=== PATIENT | female | born 1995 | race Caucasian/White ===

== ENCOUNTER 2017-11-30 16:07 | Emergency (ER) | payer MEDICAID, OTHER ==
[2017-11-30 19:15] LABS: URINE PH (Dip) POC 6.5 (5.0-8.5)
[2017-11-30 19:15] LABS: URINE BLOOD (Dip) POC Negative (NEGATIVE); URINE GLUCOSE (Dip) POC Negative (NEGATIVE); URINE KETONES (Dip) POC 1+ (NEGATIVE); URINE LEUKOCYTE EST (Dip) POC Negative (NEGATIVE); URINE NITRITE (Dip) POC Negative (NEGATIVE); URINE TOTAL PROTEIN POC Negative (NEGATIVE)
== END 2017-11-30 21:24 | disposition home or self-care (01) ==
LOC: FTE 16:07
DX: O20.9 Hemorrhage in early pregnancy, unspecified (principal); R10.2 Pelvic and perineal pain; Z3A.01 Less than 8 weeks gestation of pregnancy
CPT/HCPCS: 76801; 76817; 81003; 81025; 84702; 99284-25

== ENCOUNTER 2017-12-06 10:31 | Emergency (ER) | payer MEDICAID ==
[2017-12-06 11:19] LABS: ADD MAN DIFF? NO
[2017-12-06 11:21] LABS: WHITE BLOOD COUNT 7.7 10^3/ul (4.8-10.8)
[2017-12-06 11:21] LABS: BASOPHILS % 0.3 % (0.0-2.0); EOSINOPHILS # 0.1 10^3/ul (0.0-0.5); EOSINOPHILS % 0.8 % (0.0-7.0); HEMATOCRIT 39.5 % (37.0-47.0); HEMOGLOBIN 13.6 g/dl (12.0-16.0); LYMPHOCYTES # 1.4 10^3/ul (0.8-2.9); LYMPHOCYTES % 18.5 % (15.0-51.0); MEAN CORPUSCULAR HEMOGLOBIN 30.2 pg (29.0-33.0); MEAN CORPUSCULAR HGB CONC 34.4 g/dl (32.0-37.0); MEAN CORPUSCULAR VOLUME 87.6 fl (82.0-101.0); MEAN PLATELET VOLUME 11.1 fl (7.4-10.4); MONOCYTE # 0.6 10^3/ul (0.3-0.9); MONOCYTES % 7.8 % (0.0-11.0); NEUTROPHIL # 5.6 10^3/ul (1.6-7.5); NEUTROPHILS % 72.3 % (39.0-77.0); PLATELET COUNT 197 10^3/UL (140-415); RED BLOOD COUNT 4.51 10^6/ul (4.20-5.40); RED CELL DISTRIBUTION WIDTH 11.9 % (11.5-14.5)
[2017-12-06 11:32] LABS: ADD UMIC YES; UR ASCORBIC ACID NEGATIVE (NEGATIVE); UR BILIRUBIN (Dip) NEGATIVE (NEGATIVE); UR BLOOD (Dip) 1+ mg/dL (NEGATIVE); UR CLARITY SLIGHTLY CLOUDY (CLEAR); UR COLOR YELLOW (YELLOW); UR GLUCOSE (Dip) NEGATIVE (NEGATIVE); UR KETONES (Dip) NEGATIVE (NEGATIVE); UR LEUKOCYTE ESTERASE (Dip) NEGATIVE Leu/ul (NEGATIVE); UR NITRITE (Dip) NEGATIVE (NEGATIVE); UR RBC 4 /HPF (0-5); UR SPECIFIC GRAVITY (Dip) 1.012 (1.003-1.030); UR SQUAMOUS EPITHELIAL CELL FEW /HPF (FEW); UR TOTAL PROTEIN (Dip) NEGATIVE (NEGATIVE); UR UROBILINOGEN (Dip) NEGATIVE (NEGATIVE); UR WBC 3 /HPF (0-5)
== END 2017-12-06 12:15 | disposition home or self-care (01) ==
LOC: FTE 10:31
DX: O20.9 Hemorrhage in early pregnancy, unspecified (principal); Z3A.01 Less than 8 weeks gestation of pregnancy
CPT/HCPCS: 36415; 76801; 81001; 84702; 85025; 86900; 86901; 99284-25

== ENCOUNTER 2018-04-13 15:35 | Inpatient (IN) | payer MEDICAID ==
[2018-04-13] MEDS ORDERED: ACETAMINOPHEN 650 MG SUPP PR (16:00)
[2018-04-13] MEDS: LACTATED RINGER'S 1,000 ML IV (16:25)
[2018-04-13] MEDS: MAGNESIUM SULFATE 4 GM/100 ML 100 ML IV (16:32)
[2018-04-13 16:34] LABS: ADD MAN DIFF? NO
[2018-04-13 16:39] LABS: BASOPHILS % 0.2 % (0.0-2.0); EOSINOPHILS # 0.1 10^3/ul (0.0-0.5); EOSINOPHILS % 0.9 % (0.0-7.0); HEMATOCRIT 31.4 % (37.0-47.0); HEMOGLOBIN 10.7 g/dl (12.0-16.0); LYMPHOCYTES # 1.6 10^3/ul (0.8-2.9); LYMPHOCYTES % 15.1 % (15.0-51.0); MEAN CORPUSCULAR HEMOGLOBIN 31.4 pg (29.0-33.0); MEAN CORPUSCULAR HGB CONC 34.1 g/dl (32.0-37.0); MEAN CORPUSCULAR VOLUME 92.1 fl (82.0-101.0); MEAN PLATELET VOLUME 10.8 fl (7.4-10.4); MONOCYTE # 0.7 10^3/ul (0.3-0.9); MONOCYTES % 6.9 % (0.0-11.0); NEUTROPHIL # 7.9 10^3/ul (1.6-7.5); NEUTROPHILS % 75.9 % (39.0-77.0); PLATELET COUNT 204 10^3/UL (140-415); RED BLOOD COUNT 3.41 10^6/ul (4.20-5.40); RED CELL DISTRIBUTION WIDTH 12.8 % (11.5-14.5)
[2018-04-13 16:39] LABS: WHITE BLOOD COUNT 10.4 10^3/ul (4.8-10.8)
[2018-04-13] MEDS: BETAMET NA PHOS/AC(6 MG/ML) 2 ML INJ SYG IM (16:56)
[2018-04-13] MEDS ORDERED: PRENATAL VITAMIN PO (17:00)
[2018-04-13] MEDS: MAGNESIUM SULFATE 20 GM/500 ML 500 ML IV (17:04)
[2018-04-13 17:07] LABS: ALANINE AMINOTRANSFERASE 15 IU/L (13-69); ALBUMIN 4.1 g/dl (3.3-4.9); ALBUMIN/GLOBULIN RATIO 1.24; ALKALINE PHOSPHATASE 78 IU/L (42-121); ANION GAP 13 (5-13); ASPARTATE AMINO TRANSFERASE 21 IU/L (15-46); BILIRUBIN,INDIRECT 0.1 mg/dl (0-1.1); BILIRUBIN,TOTAL 0.1 mg/dl (0.2-1.3); BLOOD UREA NITROGEN 6 mg/dl (7-20); CALCIUM 9.6 mg/dl (8.4-10.2); CARBON DIOXIDE 24 mmol/L (21-31); CHLORIDE 102 mmol/L (97-110); CREATININE 0.41 mg/dl (0.44-1.00); Estimated GFR > 60 mL/min (>60); GLUCOSE 77 mg/dl (70-220); POTASSIUM 3.4 mmol/L (3.5-5.1); SODIUM 139 mmol/L (135-144); TOTAL PROTEIN 7.4 g/dl (6.1-8.1)
[2018-04-13 17:35] LABS: HEPATITIS B SURFACE ANTIGEN NEGATIVE (NEGATIVE)
[2018-04-13 18:51] LABS: ADD UMIC YES; UR ASCORBIC ACID NEGATIVE (NEGATIVE); UR BACTERIA FEW /HPF (NONE SEEN); UR BILIRUBIN (Dip) NEGATIVE (NEGATIVE); UR BLOOD (Dip) NEGATIVE (NEGATIVE); UR CLARITY CLEAR (CLEAR); UR COLOR YELLOW (YELLOW); UR GLUCOSE (Dip) NEGATIVE (NEGATIVE); UR KETONES (Dip) NEGATIVE (NEGATIVE); UR LEUKOCYTE ESTERASE (Dip) 2+ Leu/ul (NEGATIVE); UR NITRITE (Dip) NEGATIVE (NEGATIVE); UR RBC 0 /HPF (0-5); UR SPECIFIC GRAVITY (Dip) 1.008 (1.003-1.030); UR TOTAL PROTEIN (Dip) NEGATIVE (NEGATIVE); UR UROBILINOGEN (Dip) NEGATIVE (NEGATIVE); UR WBC 1 /HPF (0-5)
[2018-04-14 00:49] LABS: MAGNESIUM 5.4 mg/dl (1.7-2.5)
[2018-04-14] MEDS: MAGNESIUM SULFATE 20 GM/500 ML 500 ML IV ×3 (03:22→22:30)
[2018-04-14] MEDS: LACTATED RINGER'S 1,000 ML IV ×2 (04:06→17:01)
[2018-04-14 07:11] LABS: MAGNESIUM 5.7 mg/dl (1.7-2.5)
[2018-04-14] MEDS ORDERED: ACETAMINOPHEN 325 MG TAB PO (07:30)
[2018-04-14] MEDS ORDERED: ONDANSETRON 4 MG INJ IV (07:30)
[2018-04-14] MEDS: DOCUSATE SODIUM 100 MG CAP PO ×3 (09:15→21:09)
[2018-04-14] MEDS: PRENATAL VITAMIN PO (09:15)
[2018-04-14 12:32] LABS: MAGNESIUM 5.8 mg/dl (1.7-2.5)
[2018-04-14] MEDS: BETAMET NA PHOS/AC(6 MG/ML) 2 ML INJ SYG IM (16:52)
[2018-04-14 19:04] LABS: MAGNESIUM 5.4 mg/dl (1.7-2.5)
[2018-04-14] MEDS: MAGNESIUM HYDROXIDE 30ML CUP PO (21:09)
[2018-04-15] MEDS: LACTATED RINGER'S 1,000 ML IV (05:19)
[2018-04-15] MEDS: MAGNESIUM SULFATE 20 GM/500 ML 500 ML IV (05:21)
[2018-04-15 08:19] LABS: MAGNESIUM 4.1 mg/dl (1.7-2.5)
[2018-04-15] MEDS: DOCUSATE SODIUM 100 MG CAP PO ×2 (08:54→21:02)
[2018-04-15] MEDS: PRENATAL VITAMIN PO (08:54)
[2018-04-16] MEDS: PRENATAL VITAMIN PO (08:54)
[2018-04-16] MEDS: DOCUSATE SODIUM 100 MG CAP PO ×2 (08:54→21:00)
[2018-04-17] MEDS: DOCUSATE SODIUM 100 MG CAP PO ×2 (10:23→21:19)
[2018-04-17] MEDS: PRENATAL VITAMIN PO (10:23)
[2018-04-17] MEDS: INDOMETHACIN 50 MG PO (10:56)
[2018-04-17] MEDS ORDERED: INDOMETHACIN 25 MG (16:59)
[2018-04-17] MEDS: INDOMETHACIN 25 MG PO (17:06)
[2018-04-17] MEDS: LACTATED RINGER'S 1,000 ML IV (18:05)
[2018-04-17] MEDS: MAGNESIUM SULFATE 20 GM/500 ML 500 ML IV (18:08)
[2018-04-17] MEDS ORDERED: PATIENT'S OWN MEDICATION VAG (21:00)
[2018-04-17] MEDS: CEFAZOLIN 1 GM/50 ML (PMX) 50 ML IVPB (22:38)
[2018-04-17] MEDS: PROGESTERONE 200 MG VAG (22:38)
[2018-04-18] MEDS: INDOMETHACIN 25 MG PO ×5 (00:58→23:58)
[2018-04-18 01:02] LABS: MAGNESIUM 5.7 mg/dl (1.7-2.5)
[2018-04-18] MEDS: MAGNESIUM SULFATE 20 GM/500 ML 500 ML IV (04:41)
[2018-04-18] MEDS: CEFAZOLIN 1 GM/50 ML (PMX) 50 ML IVPB ×3 (05:57→21:12)
[2018-04-18] MEDS: LACTATED RINGER'S 1,000 ML IV ×2 (05:57→21:08)
[2018-04-18 07:02] LABS: GTT FASTING GLUCOSE 84 mg/dl (70-110)
[2018-04-18 07:20] LABS: GTT FASTING URINE NEGATIVE (NEGATIVE)
[2018-04-18 07:58] LABS: GLUCOSE 1 HOUR 147 mg/dl
[2018-04-18] MEDS: DOCUSATE SODIUM 100 MG CAP PO ×2 (09:12→21:09)
[2018-04-18] MEDS: PRENATAL VITAMIN PO (09:12)
[2018-04-18] MEDS: CALCIUM/VITAMIN D (500/200) TAB PO (11:48)
[2018-04-18 12:43] LABS: MAGNESIUM 6.1 mg/dl (1.7-2.5)
[2018-04-18] MEDS: NIFEdipine 10 MG CAP PO ×2 (16:16→21:11)
[2018-04-18 17:44] LABS: ADD UMIC YES; UR ASCORBIC ACID NEGATIVE (NEGATIVE); UR BILIRUBIN (Dip) NEGATIVE (NEGATIVE); UR BLOOD (Dip) NEGATIVE (NEGATIVE); UR CLARITY CLEAR (CLEAR); UR COLOR STRAW (YELLOW); UR GLUCOSE (Dip) NEGATIVE (NEGATIVE); UR KETONES (Dip) NEGATIVE (NEGATIVE); UR LEUKOCYTE ESTERASE (Dip) TRACE Leu/ul (NEGATIVE); UR MUCUS FEW /HPF (NONE SEEN); UR NITRITE (Dip) NEGATIVE (NEGATIVE); UR RBC 0 /HPF (0-5); UR SPECIFIC GRAVITY (Dip) 1.004 (1.003-1.030); UR TOTAL PROTEIN (Dip) NEGATIVE (NEGATIVE); UR UROBILINOGEN (Dip) NEGATIVE (NEGATIVE); UR WBC 1 /HPF (0-5)
[2018-04-18] MEDS: PROGESTERONE 200 MG VAG (21:10)
[2018-04-19] MEDS: NIFEdipine 10 MG CAP PO ×3 (05:49→22:02)
[2018-04-19] MEDS: CEFAZOLIN 1 GM/50 ML (PMX) 50 ML IVPB ×3 (05:49→22:01)
[2018-04-19] MEDS: INDOMETHACIN 25 MG PO (05:49)
[2018-04-19] MEDS: DOCUSATE SODIUM 100 MG CAP PO ×2 (08:46→21:08)
[2018-04-19] MEDS: PRENATAL VITAMIN PO (08:46)
[2018-04-19] MEDS: LACTATED RINGER'S 1,000 ML IV ×2 (12:43→23:20)
[2018-04-19] MEDS: CALCIUM/VITAMIN D (500/200) TAB PO (17:12)
[2018-04-19] MEDS: metroNIDAZOLE 500 MG TAB PO ×2 (17:12→21:08)
[2018-04-19] MEDS: PROGESTERONE 200 MG VAG (21:08)
[2018-04-20] MEDS: LACTATED RINGER'S 1,000 ML IV (04:20)
[2018-04-20] MEDS: CEFAZOLIN 1 GM/50 ML (PMX) 50 ML IVPB (05:55)
[2018-04-20] MEDS: NIFEdipine 10 MG CAP PO ×3 (05:56→21:46)
[2018-04-20] MEDS: metroNIDAZOLE 500 MG TAB PO ×2 (08:29→20:53)
[2018-04-20] MEDS: DOCUSATE SODIUM 100 MG CAP PO ×2 (08:29→20:53)
[2018-04-20] MEDS: CALCIUM/VITAMIN D (500/200) TAB PO (08:29)
[2018-04-20] MEDS: PRENATAL VITAMIN PO (08:29)
[2018-04-20] MEDS: PROGESTERONE 200 MG VAG (20:54)
[2018-04-21] MEDS: NIFEdipine 10 MG CAP PO ×3 (05:59→21:40)
[2018-04-21] MEDS: DOCUSATE SODIUM 100 MG CAP PO ×2 (09:00→20:34)
[2018-04-21] MEDS: metroNIDAZOLE 500 MG TAB PO ×2 (09:00→20:35)
[2018-04-21] MEDS: CALCIUM/VITAMIN D (500/200) TAB PO (09:00)
[2018-04-21] MEDS: PRENATAL VITAMIN PO (09:01)
[2018-04-21] MEDS: PROGESTERONE 200 MG VAG ×2 (20:35→21:00)
[2018-04-22] MEDS: NIFEdipine 10 MG CAP PO ×3 (05:27→22:01)
[2018-04-22] MEDS: PRENATAL VITAMIN PO (09:13)
[2018-04-22] MEDS: DOCUSATE SODIUM 100 MG CAP PO ×2 (09:13→20:36)
[2018-04-22] MEDS: CALCIUM/VITAMIN D (500/200) TAB PO (09:13)
[2018-04-22] MEDS: metroNIDAZOLE 500 MG TAB PO ×2 (09:13→20:36)
[2018-04-22] MEDS: FERROUS SULFATE (EC) 325 MG TAB PO (16:02)
[2018-04-22] MEDS: PROGESTERONE 200 MG VAG (20:36)
[2018-04-23] MEDS: NIFEdipine 10 MG CAP PO ×3 (05:58→21:35)
[2018-04-23 08:31] LABS: GLUCOSE, FASTING 73 mg/dl (70-110)
[2018-04-23 08:33] LABS: GLUCOSE,URINE RANDOM < 20 mg/dl (0-29)
[2018-04-23] MEDS: metroNIDAZOLE 500 MG TAB PO ×2 (08:59→21:35)
[2018-04-23] MEDS: PRENATAL VITAMIN PO (08:59)
[2018-04-23] MEDS: FERROUS SULFATE (EC) 325 MG TAB PO (08:59)
[2018-04-23] MEDS: DOCUSATE SODIUM 100 MG CAP PO ×2 (08:59→21:35)
[2018-04-23] MEDS: CALCIUM/VITAMIN D (500/200) TAB PO (08:59)
[2018-04-23] MEDS: PROGESTERONE 200 MG VAG (21:34)
[2018-04-24 06:05] LABS: GTT FASTING URINE NEGATIVE (NEGATIVE)
[2018-04-24] MEDS: NIFEdipine 10 MG CAP PO ×3 (06:12→21:40)
[2018-04-24 06:25] LABS: GTT FASTING GLUCOSE 74 mg/dl (70-110)
[2018-04-24 06:53] LABS: GLUCOSE 1 HOUR 132 mg/dl
[2018-04-24] MEDS: DOCUSATE SODIUM 100 MG CAP PO ×2 (08:55→21:40)
[2018-04-24] MEDS: PRENATAL VITAMIN PO (08:56)
[2018-04-24] MEDS: CALCIUM/VITAMIN D (500/200) TAB PO (08:56)
[2018-04-24] MEDS: metroNIDAZOLE 500 MG TAB PO ×2 (08:56→21:40)
[2018-04-24] MEDS: FERROUS SULFATE (EC) 325 MG TAB PO (08:56)
[2018-04-24 14:13] LABS: RUPTURE FETAL MEMBRANES NEGATIVE (NEGATIVE)
[2018-04-24] MEDS: PROGESTERONE 200 MG VAG (21:40)
[2018-04-25] MEDS: NIFEdipine 10 MG CAP PO ×3 (05:50→22:05)
[2018-04-25] MEDS: metroNIDAZOLE 500 MG TAB PO (08:06)
[2018-04-25] MEDS: FERROUS SULFATE (EC) 325 MG TAB PO (08:06)
[2018-04-25] MEDS: DOCUSATE SODIUM 100 MG CAP PO ×2 (08:06→21:10)
[2018-04-25] MEDS: CALCIUM/VITAMIN D (500/200) TAB PO (08:06)
[2018-04-25] MEDS: PRENATAL VITAMIN PO (08:06)
[2018-04-25] MEDS: AL HYDROX/MG HYDROX/SIMETH 30 ML CUP PO (10:24)
[2018-04-25] MEDS ORDERED: MAGNESIUM HYDROXIDE 30ML CUP PO (10:30)
[2018-04-25] MEDS: POLYETHYLENE GLYCOL 17 GM PACKET PO (13:49)
[2018-04-25] MEDS: PROGESTERONE 200 MG VAG (21:10)
[2018-04-26] MEDS: NIFEdipine 10 MG CAP PO ×3 (05:48→21:48)
[2018-04-26] MEDS: CALCIUM/VITAMIN D (500/200) TAB PO (09:45)
[2018-04-26] MEDS: DOCUSATE SODIUM 100 MG CAP PO ×2 (09:45→21:45)
[2018-04-26] MEDS: FERROUS SULFATE (EC) 325 MG TAB PO (09:45)
[2018-04-26] MEDS: PRENATAL VITAMIN PO (09:45)
[2018-04-26] MEDS: PROGESTERONE 200 MG VAG (21:45)
[2018-04-27] MEDS: NIFEdipine 10 MG CAP PO ×3 (05:52→21:49)
[2018-04-27] MEDS: CALCIUM/VITAMIN D (500/200) TAB PO (08:31)
[2018-04-27] MEDS: PRENATAL VITAMIN PO (08:31)
[2018-04-27] MEDS: DOCUSATE SODIUM 100 MG CAP PO ×2 (08:31→20:51)
[2018-04-27] MEDS: FERROUS SULFATE (EC) 325 MG TAB PO (08:31)
[2018-04-27] MEDS: PROGESTERONE 200 MG VAG (20:51)
[2018-04-28] MEDS: NIFEdipine 10 MG CAP PO ×3 (05:44→21:02)
[2018-04-28] MEDS: DOCUSATE SODIUM 100 MG CAP PO ×2 (09:21→21:01)
[2018-04-28] MEDS: PRENATAL VITAMIN PO (09:21)
[2018-04-28] MEDS: FERROUS SULFATE (EC) 325 MG TAB PO (09:21)
[2018-04-28] MEDS: CALCIUM/VITAMIN D (500/200) TAB PO (09:22)
[2018-04-28] MEDS: PROGESTERONE 200 MG VAG (21:01)
[2018-04-29] MEDS: NIFEdipine 10 MG CAP PO ×3 (06:03→22:08)
[2018-04-29] MEDS: CALCIUM/VITAMIN D (500/200) TAB PO (08:43)
[2018-04-29] MEDS: DOCUSATE SODIUM 100 MG CAP PO ×2 (08:43→21:05)
[2018-04-29] MEDS: FERROUS SULFATE (EC) 325 MG TAB PO (08:43)
[2018-04-29] MEDS: PRENATAL VITAMIN PO (08:43)
[2018-04-29] MEDS: PROGESTERONE 200 MG VAG (21:05)
[2018-04-30] MEDS: NIFEdipine 10 MG CAP PO ×3 (06:01→21:57)
[2018-04-30] MEDS: FERROUS SULFATE (EC) 325 MG TAB PO (08:58)
[2018-04-30] MEDS: PRENATAL VITAMIN PO (08:58)
[2018-04-30] MEDS: CALCIUM/VITAMIN D (500/200) TAB PO (08:58)
[2018-04-30] MEDS: DOCUSATE SODIUM 100 MG CAP PO ×2 (08:59→21:57)
[2018-04-30] MEDS: PROGESTERONE 200 MG VAG (21:00)
[2018-05-01] MEDS: NIFEdipine 10 MG CAP PO ×3 (05:34→22:06)
[2018-05-01] MEDS: FERROUS SULFATE (EC) 325 MG TAB PO (10:32)
[2018-05-01] MEDS: DOCUSATE SODIUM 100 MG CAP PO ×2 (10:32→21:08)
[2018-05-01] MEDS: CALCIUM/VITAMIN D (500/200) TAB PO (10:33)
[2018-05-01] MEDS: PRENATAL VITAMIN PO (10:33)
[2018-05-01] MEDS: PROGESTERONE 100 MG CAP VAG (21:08)
[2018-05-02] MEDS: NIFEdipine 10 MG CAP PO ×3 (05:35→21:31)
[2018-05-02] MEDS: FERROUS SULFATE (EC) 325 MG TAB PO (08:42)
[2018-05-02] MEDS: PRENATAL VITAMIN PO (08:42)
[2018-05-02] MEDS: CALCIUM/VITAMIN D (500/200) TAB PO (08:42)
[2018-05-02] MEDS: DOCUSATE SODIUM 100 MG CAP PO ×2 (08:42→21:30)
[2018-05-02] MEDS: PROGESTERONE 100 MG CAP VAG (21:31)
[2018-05-03] MEDS: NIFEdipine 10 MG CAP PO ×3 (05:33→22:32)
[2018-05-03] MEDS: DOCUSATE SODIUM 100 MG CAP PO ×2 (09:56→20:59)
[2018-05-03] MEDS: PRENATAL VITAMIN PO (09:56)
[2018-05-03] MEDS: FERROUS SULFATE (EC) 325 MG TAB PO (09:57)
[2018-05-03] MEDS: CALCIUM/VITAMIN D (500/200) TAB PO (09:57)
[2018-05-03] MEDS: PROGESTERONE 100 MG CAP VAG (21:01)
[2018-05-04] MEDS: NIFEdipine 10 MG CAP PO ×3 (05:55→22:54)
[2018-05-04] MEDS: FERROUS SULFATE (EC) 325 MG TAB PO (14:07)
[2018-05-04] MEDS: PRENATAL VITAMIN PO (14:07)
[2018-05-04] MEDS: DOCUSATE SODIUM 100 MG CAP PO ×2 (14:07→21:00)
[2018-05-04] MEDS: CALCIUM/VITAMIN D (500/200) TAB PO (14:11)
[2018-05-04] MEDS: PROGESTERONE 100 MG CAP VAG (21:01)
[2018-05-05] MEDS: NIFEdipine 10 MG CAP PO ×2 (05:50→13:29)
[2018-05-05] MEDS: FERROUS SULFATE (EC) 325 MG TAB PO (08:55)
[2018-05-05] MEDS: CALCIUM/VITAMIN D (500/200) TAB PO (08:55)
[2018-05-05] MEDS: DOCUSATE SODIUM 100 MG CAP PO (08:55)
[2018-05-05] MEDS: PRENATAL VITAMIN PO (08:55)
[2018-05-05] MEDS: DIPHTH/TET/ACEL PERTUSS (ADULT) 0.5 ML VIAL IM* (11:35)
== END 2018-05-05 14:40 | disposition home or self-care (01) | DRG 832 ==
LOC: L-D 15:35 → PP1 04-14 20:34 → L-D 15:42
DX: O26.873 Cervical shortening, third trimester (principal); O23.42 Unspecified infection of urinary tract in pregnancy, second trimester; Z3A.28 28 weeks gestation of pregnancy
CPT/HCPCS: 76815; 76817; 80053; 81001; 82945; 82947; 82950; 82951; 83735; 84112; 85025; 87086; 87340; 90715

== ENCOUNTER 2018-06-27 20:38 | Inpatient (IN) | payer MEDICAID ==
[2018-06-27] MEDS: LACTATED RINGER'S 1,000 ML IV (21:52)
[2018-06-27] MEDS ORDERED: ACETAMINOPHEN 325 MG TAB PO (22:00)
[2018-06-27 22:22] LABS: ADD UMIC YES; UR ASCORBIC ACID NEGATIVE (NEGATIVE); UR BACTERIA FEW /HPF (NONE SEEN); UR BILIRUBIN (Dip) NEGATIVE (NEGATIVE); UR BLOOD (Dip) 1+ mg/dL (NEGATIVE); UR CLARITY CLOUDY (CLEAR); UR COLOR YELLOW (YELLOW); UR GLUCOSE (Dip) NEGATIVE (NEGATIVE); UR KETONES (Dip) NEGATIVE (NEGATIVE); UR LEUKOCYTE ESTERASE (Dip) 3+ Leu/ul (NEGATIVE); UR NITRITE (Dip) NEGATIVE (NEGATIVE); UR RBC > 182 /HPF (0-5); UR SPECIFIC GRAVITY (Dip) 1.003 (1.003-1.030); UR SQUAMOUS EPITHELIAL CELL MODERATE /HPF (FEW); UR TOTAL PROTEIN (Dip) NEGATIVE (NEGATIVE); UR UROBILINOGEN (Dip) NEGATIVE (NEGATIVE); UR WBC > 182 /HPF (0-5)
[2018-06-27 22:27] LABS: RUPTURE FETAL MEMBRANES NEGATIVE (NEGATIVE)
[2018-06-27 22:37] LABS: ADD MAN DIFF? NO
[2018-06-27 22:40] LABS: BASOPHILS % 0.3 % (0.0-2.0); EOSINOPHILS # 0.2 10^3/ul (0.0-0.5); EOSINOPHILS % 1.5 % (0.0-7.0); HEMATOCRIT 31.2 % (37.0-47.0); HEMOGLOBIN 10.5 g/dl (12.0-16.0); LYMPHOCYTES % 20.6 % (15.0-51.0); MEAN CORPUSCULAR HEMOGLOBIN 30.7 pg (29.0-33.0); MEAN CORPUSCULAR HGB CONC 33.7 g/dl (32.0-37.0); MEAN CORPUSCULAR VOLUME 91.2 fl (82.0-101.0); MEAN PLATELET VOLUME 10.8 fl (7.4-10.4); MONOCYTE # 0.9 10^3/ul (0.3-0.9); MONOCYTES % 9.1 % (0.0-11.0); NEUTROPHIL # 6.5 10^3/ul (1.6-7.5); NEUTROPHILS % 67.2 % (39.0-77.0); PLATELET COUNT 255 10^3/UL (140-415); RED BLOOD COUNT 3.42 10^6/ul (4.20-5.40); RED CELL DISTRIBUTION WIDTH 12.6 % (11.5-14.5)
[2018-06-27 22:40] LABS: WHITE BLOOD COUNT 9.7 10^3/ul (4.8-10.8)
[2018-06-27 22:57] LABS: ALANINE AMINOTRANSFERASE 9 IU/L (13-69); ALBUMIN 3.8 g/dl (3.3-4.9); ALBUMIN/GLOBULIN RATIO 1.11; ALKALINE PHOSPHATASE 182 IU/L (42-121); ANION GAP 8 (5-13); ASPARTATE AMINO TRANSFERASE 17 IU/L (15-46); BILIRUBIN,INDIRECT 0.4 mg/dl (0-1.1); BILIRUBIN,TOTAL 0.4 mg/dl (0.2-1.3); BLOOD UREA NITROGEN 5 mg/dl (7-20); CALCIUM 9.3 mg/dl (8.4-10.2); CARBON DIOXIDE 23 mmol/L (21-31); CHLORIDE 105 mmol/L (97-110); CREATININE 0.44 mg/dl (0.44-1.00); Estimated GFR > 60 mL/min (>60); GLUCOSE 94 mg/dl (70-220); POTASSIUM 3.6 mmol/L (3.5-5.1); SODIUM 136 mmol/L (135-144); TOTAL PROTEIN 7.2 g/dl (6.1-8.1)
[2018-06-27] MEDS: MAGNESIUM SULFATE 4 GM/100 ML 100 ML IV (23:07)
[2018-06-27] MEDS: BETAMET NA PHOS/AC(6 MG/ML) 2 ML INJ SYG IM (23:15)
[2018-06-27] MEDS: TERBUTALINE 1 MG/ML INJ SC (23:19)
[2018-06-27] MEDS: MAGNESIUM SULFATE 20 GM/500 ML 500 ML IV (23:42)
[2018-06-27] MEDS: CEFAZOLIN 2 GM/50 ML (PMX) 50 ML IVPB (23:50)
[2018-06-28] MEDS: LACTATED RINGER'S 1,000 ML IV ×3 (04:36→22:11)
[2018-06-28] MEDS: CEFAZOLIN 2 GM/50 ML (PMX) 50 ML IVPB ×3 (07:53→23:08)
[2018-06-28] MEDS: FERROUS SULFATE (EC) 325 MG TAB PO (08:43)
[2018-06-28] MEDS: PRENATAL VITAMIN PO (08:43)
[2018-06-28] MEDS: MAGNESIUM SULFATE 20 GM/500 ML 500 ML IV ×2 (08:48→18:42)
[2018-06-28 12:27] LABS: MAGNESIUM 5.4 mg/dl (1.7-2.5)
[2018-06-28 19:11] LABS: MAGNESIUM 5.6 mg/dl (1.7-2.5)
[2018-06-28] MEDS ORDERED: NITROFURANTOIN (SR) 100 MG CAP PO (21:00)
[2018-06-28] MEDS: BETAMET NA PHOS/AC(6 MG/ML) 2 ML INJ SYG IM (23:04)
[2018-06-29 00:02] LABS: INR 0.97
[2018-06-29 00:03] LABS: PARTIAL THROMBOPLASTIN TIME 24.1 Sec (23.0-35.0)
[2018-06-29 00:29] LABS: HEPATITIS B SURFACE ANTIGEN NEGATIVE (NEGATIVE)
[2018-06-29] MEDS: CEFAZOLIN 2 GM/50 ML (PMX) 50 ML IVPB ×3 (06:30→23:26)
[2018-06-29] MEDS: LACTATED RINGER'S 1,000 ML IV ×2 (06:59→16:21)
[2018-06-29] MEDS: FERROUS SULFATE (EC) 325 MG TAB PO (09:25)
[2018-06-29] MEDS: PRENATAL VITAMIN PO (09:25)
[2018-06-29 15:04] LABS: RAPID PLASMA REAGIN NONREACTIVE (NR)
[2018-06-30] MEDS: LACTATED RINGER'S 1,000 ML IV ×4 (01:19→18:59)
[2018-06-30] MEDS: CEFAZOLIN 2 GM/50 ML (PMX) 50 ML IVPB ×3 (05:47→22:06)
[2018-06-30] MEDS: PRENATAL VITAMIN PO (08:58)
[2018-06-30] MEDS: FERROUS SULFATE (EC) 325 MG TAB PO (08:58)
[2018-07-01] MEDS: LACTATED RINGER'S 1,000 ML IV ×2 (03:11→12:25)
[2018-07-01] MEDS: CEFAZOLIN 2 GM/50 ML (PMX) 50 ML IVPB (06:11)
[2018-07-01] MEDS: FERROUS SULFATE (EC) 325 MG TAB PO (08:07)
[2018-07-01] MEDS: PRENATAL VITAMIN PO (08:07)
[2018-07-01 15:32] LABS: ADD UMIC NO; UR ASCORBIC ACID NEGATIVE (NEGATIVE); UR BILIRUBIN (Dip) NEGATIVE (NEGATIVE); UR BLOOD (Dip) NEGATIVE (NEGATIVE); UR CLARITY CLEAR (CLEAR); UR COLOR STRAW (YELLOW); UR GLUCOSE (Dip) NEGATIVE (NEGATIVE); UR KETONES (Dip) NEGATIVE (NEGATIVE); UR LEUKOCYTE ESTERASE (Dip) NEGATIVE Leu/ul (NEGATIVE); UR NITRITE (Dip) NEGATIVE (NEGATIVE); UR SPECIFIC GRAVITY (Dip) 1.004 (1.003-1.030); UR TOTAL PROTEIN (Dip) NEGATIVE (NEGATIVE); UR UROBILINOGEN (Dip) NEGATIVE (NEGATIVE)
== END 2018-07-01 18:22 | disposition home or self-care (01) | DRG 832 ==
LOC: OBT 20:38 → L-D 20:39 → OBT 21:20 → L-D 21:20
DX: O47.03 False labor before 37 completed weeks of gestation, third trimester (principal); O23.43 Unspecified infection of urinary tract in pregnancy, third trimester; Z3A.36 36 weeks gestation of pregnancy
CPT/HCPCS: 76815; 76818; 80053; 81001; 81003; 83735; 84112; 85025; 85610; 85730; 86592; 86850; 86900; 86901; 87340

== ENCOUNTER 2018-07-26 08:38 | Inpatient (IN) | payer MEDICAID ==
[2018-07-26] MEDS ORDERED: LACTATED RINGER'S 1,000 ML IV (09:12)
[2018-07-26] MEDS ORDERED: OXYTOCIN 30 UNITS/LR 500 ML IV (09:30)
[2018-07-26] MEDS ORDERED: LIDOCAINE 1% (MPF) 30 ML INJ INJ (09:30)
[2018-07-26] MEDS ORDERED: METHYLERGONOVINE 0.2 MG INJ IM (09:30)
[2018-07-26] MEDS ORDERED: MISOPROSTOL 200 MCG TAB PR (09:30)
[2018-07-26] MEDS ORDERED: IBUPROFEN 600 MG TAB PO (09:30)
[2018-07-26] MEDS ORDERED: CARBOPROST 250 MCG INJ IM (09:30)
[2018-07-26] MEDS: LACTATED RINGER'S 1,000 ML IV ×2 (10:13→18:11)
[2018-07-26 10:35] LABS: ADD MAN DIFF? NO
[2018-07-26 10:39] LABS: BASOPHILS % 0.3 % (0.0-2.0); EOSINOPHILS # 0.1 10^3/ul (0.0-0.5); EOSINOPHILS % 0.8 % (0.0-7.0); HEMATOCRIT 34.6 % (37.0-47.0); HEMOGLOBIN 11.6 g/dl (12.0-16.0); LYMPHOCYTES # 1.6 10^3/ul (0.8-2.9); LYMPHOCYTES % 15.5 % (15.0-51.0); MEAN CORPUSCULAR HEMOGLOBIN 31.2 pg (29.0-33.0); MEAN CORPUSCULAR HGB CONC 33.5 g/dl (32.0-37.0); MONOCYTE # 0.8 10^3/ul (0.3-0.9); MONOCYTES % 8.1 % (0.0-11.0); NEUTROPHIL # 7.4 10^3/ul (1.6-7.5); NEUTROPHILS % 74.1 % (39.0-77.0); PLATELET COUNT 217 10^3/UL (140-415); RED BLOOD COUNT 3.72 10^6/ul (4.20-5.40); RED CELL DISTRIBUTION WIDTH 13.8 % (11.5-14.5)
[2018-07-26] MEDS: OXYTOCIN 30 UNITS/LR 500 ML IV (10:51)
[2018-07-26 10:58] LABS: INR 0.94; PROTIME 12.7 Sec (11.9-14.9)
[2018-07-26 10:59] LABS: PARTIAL THROMBOPLASTIN TIME 25.9 Sec (23.0-35.0)
[2018-07-26 12:04] LABS: HEPATITIS B SURFACE ANTIGEN NEGATIVE (NEGATIVE)
[2018-07-26 22:19] LABS: RAPID PLASMA REAGIN NONREACTIVE (NR)
[2018-07-27] MEDS: LACTATED RINGER'S 1,000 ML IV ×2 (02:22→10:45)
[2018-07-27] MEDS: BUTORPHANOL 2 MG INJ IV (05:51)
[2018-07-27] MEDS: OXYTOCIN 30 UNITS/LR 500 ML IV ×2 (17:20→17:37)
[2018-07-27] MEDS ORDERED: OXYTOCIN 30 UNITS/LR 500 ML IV (20:30)
[2018-07-27] MEDS ORDERED: OXYCODONE/ASPIRIN (4.88/325) TAB PO ×2 (20:30)
[2018-07-27] MEDS ORDERED: METHYLERGONOVINE 0.2 MG INJ IM (20:30)
[2018-07-27] MEDS ORDERED: CARBOPROST 250 MCG INJ IM (20:30)
[2018-07-27] MEDS ORDERED: MISOPROSTOL 200 MCG TAB PR (20:30)
[2018-07-27] MEDS ORDERED: ZOLPIDEM 5 MG TAB PO (20:30)
[2018-07-27] MEDS: LANOLIN HPA 1 PKT TOP (21:26)
[2018-07-27] MEDS: SENNA/DOCUSATE NA (8.6MG/50MG) TAB PO (21:26)
[2018-07-27] MEDS: BENZOCAINE 20% 56 ML SPRAY TOP (21:27)
[2018-07-27] MEDS: WITCH HAZEL/GLYCERIN PAD PR (21:27)
[2018-07-27] MEDS: IBUPROFEN 600 MG TAB PO (23:48)
[2018-07-28] MEDS: IBUPROFEN 600 MG TAB PO ×4 (05:48→23:57)
[2018-07-28 08:21] LABS: ADD MAN DIFF? NO
[2018-07-28 08:28] LABS: WHITE BLOOD COUNT 18.1 10^3/ul (4.8-10.8)
[2018-07-28 08:28] LABS: ABNORMAL IP MESSAGE 1; BASOPHILS % 0.2 % (0.0-2.0); EOSINOPHILS % 0.1 % (0.0-7.0); HEMATOCRIT 27.4 % (37.0-47.0); HEMOGLOBIN 9.3 g/dl (12.0-16.0); LYMPHOCYTES # 2.6 10^3/ul (0.8-2.9); LYMPHOCYTES % 14.5 % (15.0-51.0); MEAN CORPUSCULAR HEMOGLOBIN 31.3 pg (29.0-33.0); MEAN CORPUSCULAR HGB CONC 33.9 g/dl (32.0-37.0); MEAN CORPUSCULAR VOLUME 92.3 fl (82.0-101.0); MEAN PLATELET VOLUME 11.5 fl (7.4-10.4); MONOCYTE # 2.1 10^3/ul (0.3-0.9); MONOCYTES % 11.7 % (0.0-11.0); NEUTROPHIL # 13.2 10^3/ul (1.6-7.5); NEUTROPHILS % 72.7 % (39.0-77.0); PLATELET COUNT 182 10^3/UL (140-415); RED BLOOD COUNT 2.97 10^6/ul (4.20-5.40); RED CELL DISTRIBUTION WIDTH 13.8 % (11.5-14.5)
[2018-07-28 08:59] LABS: POSITIVE DIFF @See below
[2018-07-28] MEDS: SENNA/DOCUSATE NA (8.6MG/50MG) TAB PO ×2 (09:40→20:56)
[2018-07-29] MEDS: IBUPROFEN 600 MG TAB PO ×2 (05:34→12:29)
[2018-07-29] MEDS: SENNA/DOCUSATE NA (8.6MG/50MG) TAB PO (09:00)
[2018-07-29 14:11] LABS: ADD MAN DIFF? NO
[2018-07-29 14:12] LABS: WHITE BLOOD COUNT 10.5 10^3/ul (4.8-10.8)
[2018-07-29 14:12] LABS: BASOPHIL # 0.1 10^3/ul (0.0-0.1); BASOPHILS % 0.5 % (0.0-2.0); EOSINOPHILS # 0.1 10^3/ul (0.0-0.5); EOSINOPHILS % 1.2 % (0.0-7.0); HEMATOCRIT 31.7 % (37.0-47.0); HEMOGLOBIN 10.5 g/dl (12.0-16.0); LYMPHOCYTES # 1.9 10^3/ul (0.8-2.9); LYMPHOCYTES % 17.7 % (15.0-51.0); MEAN CORPUSCULAR HEMOGLOBIN 31.3 pg (29.0-33.0); MEAN CORPUSCULAR HGB CONC 33.1 g/dl (32.0-37.0); MEAN CORPUSCULAR VOLUME 94.6 fl (82.0-101.0); MEAN PLATELET VOLUME 10.3 fl (7.4-10.4); MONOCYTE # 0.8 10^3/ul (0.3-0.9); MONOCYTES % 7.1 % (0.0-11.0); NEUTROPHIL # 7.6 10^3/ul (1.6-7.5); NEUTROPHILS % 72.3 % (39.0-77.0); PLATELET COUNT 214 10^3/UL (140-415); RED BLOOD COUNT 3.35 10^6/ul (4.20-5.40); RED CELL DISTRIBUTION WIDTH 13.7 % (11.5-14.5)
[2018-07-29] MEDS: DIPHTH/TET/ACEL PERTUSS (ADULT) 0.5 ML VIAL IM* (14:12)
[2018-07-29] MEDS: WITCH HAZEL/GLYCERIN PAD PR (14:22)
[2018-07-29] MEDS: BENZOCAINE 20% 56 ML SPRAY TOP (14:23)
== END 2018-07-29 15:30 | disposition home or self-care (01) | DRG 807 ==
LOC: OBT 08:38 → L-D 08:38 → PP1 07-27 19:22 → OBT 09:38 → L-D 09:38
PROVIDERS: Obstetrics & Gynecology
PROC: 0W8NXZZ Division of Female Perineum, External Approach (ICD-10-PCS; 2018-07-26)
PROC: 10E0XZZ Delivery of Products of Conception, External Approach (ICD-10-PCS; principal; 2018-07-27)
DX: O26.873 Cervical shortening, third trimester (principal); O69.81X0 Labor and delivery complicated by cord around neck, without compression, not applicable or unspecified; Z37.0 Single live birth; Z3A.39 39 weeks gestation of pregnancy
CPT/HCPCS: 85025; 85610; 85730; 86592; 86850; 86900; 86901; 87340; 90715